=== PATIENT | female | born 1990 | race Caucasian/White ===

== ENCOUNTER 2019-05-13 19:38 | Day surgery (SDC) | payer OTHER ==
[~2019-05-13] VITALS: Ht 157.5 cm; Wt 104.5 kg
[2019-05-13] MEDS ORDERED: NS 1,000 ML IV ONE ×2 (20:00→20:15)
[2019-05-13 20:14] LABS: HEMATOCRIT 36.9 % (36.0-47.0); HEMOGLOBIN 12.3 g/dl (12.0-15.5); MEAN CORPUSCULAR HEMOGLOBIN 28.4 pg (27.0-33.0); MEAN CORPUSCULAR HGB CONC 33.3 g/dl (32.0-36.5); MEAN CORPUSCULAR VOLUME 85.2 fl (80.0-96.0); PLATELET COUNT, AUTOMATED 375 10^3/uL (150-450); RED BLOOD COUNT 4.33 10^6/uL (4.00-5.40); WHITE BLOOD COUNT 11.6 10^3/uL (4.0-10.0)
[2019-05-13 20:25] LABS: INR 1.04; PROTHROMBIN TIME 13.3 SECONDS (11.8-14.0)
[2019-05-13 20:26] LABS: PARTIAL THROMBOPLASTIN TIME 25.1 SECONDS (25.0-38.4)
[2019-05-13 20:41] LABS: ATYPICAL LYMPH 2 % (0-5); EOSINOPHILS 1 % (0-3); LYMPHOCYTES 47 % (16-44); MONOCYTES 2 % (0-5); NEUTROPHILS 48 % (28-66); PLATELET ESTIMATE NORMAL (NORMAL)
[2019-05-13 20:58] LABS: ALBUMIN 3.2 GM/DL (3.2-5.2); ALT/SGPT 14 U/L (12-78); BILIRUBIN,TOTAL 0.3 MG/DL (0.2-1.0); BLOOD UREA NITROGEN 10 MG/DL (7-18); CALCIUM LEVEL 9.3 MG/DL (8.5-10.1); CARBON DIOXIDE LEVEL 22 MEQ/L (21-32); CHLORIDE LEVEL 109 MEQ/L (98-107); CREATININE FOR GFR 0.89 MG/DL (0.55-1.30); GLOMERULAR FILTRATION RATE > 60.0 (>60); GLUCOSE, FASTING 123 MG/DL (70-100); HCG, SERUM QUANTITATIVE 2760 MIU/ML; POTASSIUM SERUM 4.2 MEQ/L (3.5-5.1); SODIUM LEVEL 141 MEQ/L (136-145); TOTAL PROTEIN 6.3 GM/DL (6.4-8.2)
[2019-05-13] MEDS ORDERED: PROPOFOL 200 MG/20 ML VIAL As Ordered ONE (21:06)
[2019-05-13] MEDS ORDERED: LIDOCAINE 2% INJ 100 MG/5 ML SDV (FOR ANES.) As Ordered ONE (21:06)
[2019-05-13] MEDS ORDERED: ROCURONIUM BROMIDE 50 MG/5 ML VIAL As Ordered ONE (21:07)
[2019-05-13] MEDS ORDERED: fentaNYL 100 MCG/2 ML INJECTION (J3010) As Ordered ONE ×2 (21:09→22:23)
[2019-05-13] MEDS ORDERED: MIDAZOLAM INJ 2 MG/2 ML VIAL (J2250) As Ordered ONE (21:10)
[2019-05-13 21:15] VITALS: BP 132/66
[2019-05-13] MEDS ORDERED: dexameTHASONE 4 MG/ML 1ML VIAL (J1100) As Ordered ONE (22:18)
[2019-05-13] MEDS ORDERED: ONDANSETRON 4MG/2ML VIAL (J2405) As Ordered ONE (22:18)
[2019-05-13] MEDS ORDERED: SUGAMMADEX SODIUM 500 MG/5 ML VIAL (BRIDION) As Ordered ONE (22:18)
[2019-05-13] MEDS ORDERED: METOCLOPRAMIDE INJ 10MG/2ML VIAL (J2765) As Ordered ONE (22:18)
[2019-05-13] MEDS ORDERED: KETOROLAC 60 MG/2 ML VIAL (J1885) As Ordered ONE (22:26)
[2019-05-13] MEDS ORDERED: ONDANSETRON 4MG/2ML VIAL (J2405) IV PRN (22:30)
[2019-05-13] MEDS ORDERED: LR 1,000 ML IV SCH (22:30)
[2019-05-13] MEDS ORDERED: METOCLOPRAMIDE INJ 10MG/2ML VIAL (J2765) IV PRN (22:30)
[2019-05-13] MEDS ORDERED: KETOROLAC 30 MG/ML VIAL (J1885) IV PRN (22:30)
[2019-05-13] MEDS ORDERED: PERCOCET 5MG/325MG TAB PO PRN (22:30)
[2019-05-13] MEDS ORDERED: fentaNYL 100 MCG/2 ML INJECTION (J3010) IV PRN (22:30)
[2019-05-13 23:30] VITALS: BP 126/69
[2019-05-14] VITALS (7 sets, daily range): BP systolic 118–136; BP diastolic 66–81
[2019-05-14] MEDS ORDERED: DOXYCYCLINE HYCLATE 100 MG TAB PO ONE
[2019-05-14] MEDS ORDERED: ACETAMINOPHEN 500 MG TAB PO PRN
[2019-05-14] MEDS ORDERED: LR 1,000 ML IV SCH
[2019-05-14 08:15] LABS: HEMATOCRIT 35.1 % (36.0-47.0); MEAN CORPUSCULAR HEMOGLOBIN 29.3 pg (27.0-33.0); MEAN CORPUSCULAR HGB CONC 34.2 g/dl (32.0-36.5); MEAN CORPUSCULAR VOLUME 85.8 fl (80.0-96.0); PLATELET COUNT, AUTOMATED 278 10^3/uL (150-450); RED BLOOD COUNT 4.09 10^6/uL (4.00-5.40); WHITE BLOOD COUNT 9.3 10^3/uL (4.0-10.0)
--- NOTE | 2019-05-16 08:22 | RO ---
DATE OF PROCEDURE: 05/13/2019 PREPROCEDURE DIAGNOSIS: Incomplete with hemorrhage. POSTPROCEDURE DIAGNOSIS: Incomplete with hemorrhage. PROCEDURE: Dilation and curettage. SURGEON: Dr. Angelo Morton HAND OUTSIDE CUTTER: ANESTHESIA: General endotracheal. ESTIMATED BLOOD LOSS: 300 mL. URINE OUTPUT: 300 mL. FINDINGS: Moderate amount of products of conception. DESCRIPTION OF PROCEDURE: The patient was taken to the operating room where general endotracheal anesthesia was induced. She was prepped and draped in sterile fashion in the dorsal lithotomy position. The bladder was emptied with as catheter. The patient was noted to be actively bleeding with moderately large blood clots being passed. Speculum was placed in the vagina. The anterior lip of the cervix was grasped with a tenaculum. The cervix was noted to be dilated. A #9 mm suction curet was placed through the internal os. Suction device was activated and the curet was serially rotated. Products of conception were noted to be coming through t he suction tubing. Sharp curettage was performed. The uterine cavity was deemed to be empty. The bleeding ceased after the procedure. Sponge and instrument counts were correct.
== END 2019-05-14 11:00 | disposition home or self-care (01) ==
LOC: M ED 19:38 → M SDC 19:39 → M PED 23:30 → M SDC 05-14 11:00
PROVIDERS: ATTEND Specialist
DX: O02.1 Missed abortion (principal); E66.9 Obesity, unspecified
CPT/HCPCS: 36415; 36430; 59820; 80053; 84702; 85025; 85027; 85610; 85730; 86850; 86900; 86901; 86920; 88305; 96360; 96361; 99285; J1100; J1885; J2250; J2405; J2765; J3010